=== PATIENT | female | born 1935 | race Caucasian/White ===

== ENCOUNTER → 2016-11-07 | Outpatient (CLI) | payer OTHER ==
[~2016-11-07] MED LIST: ARIMIDEX PO; ASPIR 8181 MG PO; CALCIUM 500+D1 EAC2; CALCIUM 600 +1 EAC1 PO; CARTIA XT240 M1 PO; CELEBREX 200 M200 MG PO; CENTRUM SILVER1 EAC4 PO; DARVOCET-N 1001 EACH PO; EDARBI80 MG PO; GLUCOSAMINE HC500 MG PO; LEVOTHYROXINE 0.1 MG PO; MICARDIS HCT 81 EAC1 PO; MOBIC15 MG PO; MULTIVITAMINS; PRILOSEC OTC20 MG PO; SYNTHROID88 MCG
== END ==
LOC: RAD 11-04 14:55
DX: Z12.31 Encounter for screening mammogram for malignant neoplasm of breast (principal)

== ENCOUNTER → 2017-11-11 | Outpatient (CLI) | payer OTHER | LOC: RAD 05:04 | DX: Z12.31 Encounter for screening mammogram for malignant neoplasm of breast (principal) ==

== ENCOUNTER 2018-09-21 12:08 | Inpatient (IN) | payer OTHER ==
--- NOTE | ~2018-09-21 | D ---
[facility] [place] [address] DISCHARGE SUMMARY Name: Ramiro HUERTAS Room #: 207-P ADM IN M.R.#: [id number] Admission: 09/21/18 ������������������ Attend Phys: Jose Elias Fischer Discharge: ������������������ Date of : 33 Report #: [id number] THIS REPORT FOR: //name// CC: Diana Fischer DATE OF SERVICE: 09/22/2018 ADMITTING DIAGNOSIS: Symptomatic paroxysmal atrial fibrillation. DISCHARGE DIAGNOSES: 1. Symptomatic paroxysmal atrial fibrillation. 2. Degenerative joint disease. PROCEDURES PERFORMED: Implantation of a [employer] loop recorder. DISCHARGE MEDICATIONS: 1. At home meds. 2. Amiodarone 200 mg p.o. b.i.d. for 1 week, q. a.m. for 1 week thereafter. FOLLOWUP: Dr. Fischer in 3 weeks. BRIEF CLINICAL HISTORY: See history and physical in chart. HOSPITAL COURSE: The patient was admitted to the hospital, has initiated IV amiodarone. She did not convert clinically, but was fed breakfast, and therefore, was unable to undergo cardioversion, but proposed loop implantation proceeded as scheduled. She is now being discharged in stable condition to follow up as an outpatient and allow full amiodarone load to occur. If she does not convert after adequate levels, then we will bring her back at that time for electrical cardioversion. Discussed with the patient and family. They both agreed. She is now being discharged in stable and improved condition to follow up with the previously stated discharge instructions and medications. ��������������������������������������������� ���������������������������������������� By: ��������������������������������������������� [phone] Jose Elias Fischer MD /nt
[2018-09-21 12:10] VITALS: BP 124/78; BP 137/92
[2018-09-21] MEDS ORDERED: EDARBI80 MG (12:49)
[2018-09-21] MEDS ORDERED: TOPROL XL25 MG PO (12:50)
[2018-09-21] MEDS ORDERED: NORVASC5 MG PO (12:50)
[2018-09-21] MEDS ORDERED: ELIQUIS5 MG PO (12:51)
[2018-09-21] MEDS ORDERED: TYLENOL EXTRA500 MG PO (12:52)
--- NOTE | 2018-09-21 13:09 | NUR ---
PT IS DIRECT ADMIT FROM DR GEORGE OFFICE. PT ARRIVED TO UNIT AT APPROX 1200 WITH DAUGHTER, PT ALERT AND ORIENTED, VSS, DENIES PAIN, UP AD WILD. ADMISSION COMPLETED, CONSENTS SIGNED. TELE PUT ON- ADMIT STRIP PRINTED AND DOCUMENTED. IV STARTED. WILL AWAIT FURTHER ORDERS. PT DENIES CONCERNS AT THIS TIME. WILL CONTINUE TO MONITOR AND FOLLOW POC.
[2018-09-21 14:38] LABS: CALCIUM 10.1 mg/dL (8.5-10.1); CREATININE 0.8 mg/dL (0.6-1.0); POTASSIUM 4.1 mmol/L (3.5-5.1)
--- NOTE | 2018-09-21 15:36 | NUR ---
VASCULAR ACCESS TEAM CONSULTED FOR PIC PLACEMENT. PT'S LABS,MEDS,HISTORY, ORDER AND CONSENT VERIFIED. DISCUSSED BENEFITS AND RISKS OF PICC WITH PT AND FAMILY, VERBALIZED UNDERSTANDING. PT WAS PREPPED AND DRAPED FOR MAX BARRIER PRECAUTIONS.JARRETT BRACHIAL WAS WIDELY PATENT WITH USG,1% LIDOCAINE GIVEN SQ. 4FR DL PICC TRIMMED TO 38CM INSERTED TO 2CM EXTERNAL. STAT CXR OBTAINED.
--- NOTE | 2018-09-21 16:00 | NUR ---
CXR CONFIRMED PLACEMENT.RELEASED FOR IMMEDIATE USE PER PROTOCOL.
[2018-09-21 16:15] VITALS: BP 135/89
--- NOTE | 2018-09-21 17:09 | NUR ---
PT CONTINUES TO BE ALERT AND ORIENTED, DAUGHTERS INVOLVED IN PT CARE AND AT BEDSIDE. CONTINUES TO DENY PAIN, SOB. O2 SATS WNL ON ROOM AIR. AMIO GTT CONTINUES PER PROTOCOL. PT UP SBA TOLERATING WELL. PT AND DAUGHTERS UPDATED ON POC. DENIES CONCERNS AT THIS TIME. WILL CONT TO MONITOR AND FOLLOW POC.
[2018-09-21 20:00] VITALS: BP 123/62
[2018-09-22] VITALS (8 sets, daily range): BP systolic 114–163; BP diastolic 65–129
--- NOTE | 2018-09-22 04:26 | NUR ---
PATIENTS CARES WERE ASSUMED AT SHIFT CHANGE. PATIENT WAS ASSESSED AND MEDS WERE PASSED. HOURLY ROUNDING WAS DONE. THE BED IS IN A LOW AND LOCKED POSITION. ORDERS FOR HER CARDIO GTTS WERE FOLLOWED
--- NOTE | 2018-09-22 08:06 | EKG ---
[address] [place] [address] ELECTROCARDIOGRAM REPORT Name: Ramiro HUERTAS Room #: 207-P ADM IN M.R.#: [id number] ������������������ Admission: 09/21/18 ������������������ Attend Phys: Jose Elias Fischer Discharge: ������������������ Date of : 33 Report #: [id number] ����������������������������������������������������������������� [id number] THIS REPORT FOR: //name// [facility] Test Date: 2018-09-22 Test Time: 07:14:09 Pat Name: Ramiro HUERTAS Department: Room: 207 P Gender: F Customer Experience Specialist: IFTIKHAR : 1935 Requested By: Lala Barksdale Order Number: [id number] MD: Juan Guidry Measurements Intervals Irene Rate: 87 P: PA: QRS: -26 QRSD: 96 T: 171 QT: 345 QTc: 415 Interpretive Statements Atrial fibrillation Borderline left axis deviation Poor R wave progression Nonspecific ST and T wave abnormality Compared to ECG 10/12/2015 08:21:17 Atrial fibrillation has replaced sinus rhythm Electronically Signed On 09-22-2018 8:06:41 CDT by Juan Guidry [email or web address] ��������������������������������������������� <ELECTRONICALLY SIGNED> ���������������������������������������� By: Juan Guidry MD, [facility] ��������������������������������������������� 09/22/18 0806 0714 3 Juna Guidry MD, [facility] /EPI
--- NOTE | 2018-09-22 09:06 | NUR ---
ASSUMED CARE OF PT APPROX 0715, DAUGHTER AT BEDSIDE, PT REPORTED NPO YET BREAKFAST BROUGHT, PT REPORTED SHE ONLY HAD A FEW BITES BEFORE PRECEPTOR CAUGHT THE FACT A TRAY WAS DELIVERED. PT IS A&0X, MEDS GIVEN WITH A FEW SIPS OF WATER. GENERALIZED PAIN ALL OVER, AND KNEES, WILL ASK PHYSICIAN FOR EXTRA STRENGTH TYLENOL. ENCOURAGED ALL TO USE CALL LIGHT FOR ANY NEEDS.
--- NOTE | 2018-09-22 12:46 | NUR ---
PT RETURNED FROM PROCEDURE, A&0X4, FAMILY AT BEDSIDE, AMIO GTT RUNNING AT ONLY 3ML/HR, ADDED IN REAL TIME DOSE OF VOLUME TO BE INFUSED. WILL CHECK FURTHER ORDERS FOR DIET THIS A.M. DIET OF NPO, DISCOVERED LATER, WAS ENTERED NPO AFTER LUNCH TODAY; HENCE PT RECEIVING HER BFAST THIS A.M. BEFORE HER PROCEDURE.ENCOURAGED ALL TO USE CALL LIGHT FOR ANY NEEDS. AT THIS TIME, VS WNL FOR PT
[2018-09-22] MEDS ORDERED: PACERONE 200 M200 M1 PO (14:40)
--- NOTE | 2018-09-22 16:07 | NUR ---
IN PREPARATION FOR DISCHARGE, IV AND PICC LINE REMOVED W/PRESSURE HELD TO STASIS. PT LEAVING WITH DAUGHTER AND ACCOMPANIED BY TRANSPORT TO [facility]. TELE REMOVED AND STRIP PRINTED, AFIB. ALL BELONGINGS W/PT
--- NOTE | 2018-09-23 14:24 | LINQ ---
[place] [address] [facility] [place] [place] [address] LINQ PROCEDURE REPORT Name: JOHNNYMAUREENRamiro SÁNCHEZ Room #: 207-P [facility] IN ..#: [id number] ������������� Admission: 09/21/18 ������������� Attend Phys: Jose Elias Oconnor Discharge: ��� 09/22/18 ������������� ��� Date of : 33 Date of Service: 09/23/18 1423 �� Report #: [id number] �������� ��������������������������������������������[id number] THIS REPORT FOR: //name// APPROVED REPORT Study performed: 09/22/2018 16:29:17 Patient Status: Out-Patient Room #: Event Personnel: Dr Jose Elias Fischer Exam: LOOP Recorder Insertion Indications: Syncope, paroxysmal atrial fibrillation The patient is a 82 year-old female with a history of paroxysmal atrial fibrillation. Implanted Devices: [id number] Confirm [email or web address] Model [id number]/ Serial #[id number] Procedure The patient underwent informed consent. We discussed the details of the procedure including the risks, which include, but not limited to bleeding, infection, vascular damage, cardiac perforation, and pneumothorax. After informed consent was obtained the patient was brought to the cardiac catheterization prep and hold. The left chest was prepped and draped in usual sterile manner. 1% lidocaine was instilled in the proposed incision site and along the proposed tract. Utilizing a #11 blade a skin incision was performed without difficulty. Utilizing blunt and sharp dissection a tract was developed subcutaneously. The device was then delivered subcutaneously utilizing me in close delivery mechanism without complications. Subcutaneous tissue was then sewn into simple interrupted 6 sutures and the skin was closed with 3-0 Vicryl absorbable in a subcuticular fashion. There was no significant blood loss patient tolerated procedure well and there were no complications Complications The patient tolerated the procedure well and there were no complications associated with the procedure. Findings Estimated Blood Loss: 0 Conclusion 1. Successful implantation of a [employer] confirmed loop recorder [address] [address] Referral.IM PROCEDURE REPORT Name: Ramiro HUERTAS Room #: 207-P [facility] IN .R.#: [id number] ������������� Admission: 09/21/18 ������������� Attend Phys: Jose Elias Oconnor Discharge: ��� 09/22/18 ������������� ��� Date of : 33 Date of Service: 09/23/18 142 �� Report #: [id number] �������� ��������������������������������������������[id number] Recommendations 1. Routine post Insertion protocol ��������������������������������������������� <ELECTRONICALLY SIGNED> ���������������������������������������� By: Jose Elias Fischer MD ��������������������������������������������� 09/23/18 142 22 22 Jose Elias Fischer MD /INF
== END 2018-09-22 16:24 | disposition home or self-care (01) | DRG 262 ==
LOC: 2N 12:08 → ENTRNSPT 09-22 16:10 → 2N 09-22 16:24
PROVIDERS: Nurse Practitioner Gerontology; ADMIT Internal Medicine
PROC: 02HV33Z Insertion of Infusion Device into Superior Vena Cava, Percutaneous Approach (ICD-10-PCS; 2018-09-21)
PROC: B548ZZA Ultrasonography of Superior Vena Cava, Guidance (ICD-10-PCS; 2018-09-21)
PROC: 0JH602Z Insertion of Monitoring Device into Chest Subcutaneous Tissue and Fascia, Open Approach (ICD-10-PCS; principal; 2018-09-22)
DX: I48.0 Paroxysmal atrial fibrillation (principal); I10 Essential (primary) hypertension; M19.90 Unspecified osteoarthritis, unspecified site; Z79.01 Long term (current) use of anticoagulants
CPT/HCPCS: 10081

== ENCOUNTER → 2019-04-26 | Outpatient (CLI) | payer OTHER ==
[~2019-04-26] MED LIST changes: +EDARBI80 MG; +ELIQUIS5 MG PO; +NORVASC5 MG PO; +PACERONE 200 M200 M1 PO; +TOPROL XL25 MG PO; +TYLENOL EXTRA500 MG PO
== END ==
LOC: RAD 10:54
DX: Z12.31 Encounter for screening mammogram for malignant neoplasm of breast (principal)

== ENCOUNTER → 2019-08-16 | Outpatient (CLI) | payer OTHER | LOC: SJCVC 10:03 | DX: I44.4 Left anterior fascicular block (principal); I48.0 Paroxysmal atrial fibrillation; I38 Endocarditis, valve unspecified; I10 Essential (primary) hypertension; E78.5 Hyperlipidemia, unspecified; K21.9 Gastro-esophageal reflux disease without esophagitis; M19.90 Unspecified osteoarthritis, unspecified site; Z82.49 Family history of ischemic heart disease and other diseases of the circulatory system; Z79.899 Other long term (current) drug therapy ==

== ENCOUNTER → 2020-06-07 | Outpatient (CLI) | payer OTHER | LOC: BC 10:27 | PROVIDERS: ATTEND Internal Medicine | DX: Z12.31 Encounter for screening mammogram for malignant neoplasm of breast (principal) ==

== ENCOUNTER → 2020-08-17 | Outpatient (CLI) | payer OTHER | LOC: SJCVCIMAG 13:32 | PROVIDERS: ATTEND Internal Medicine | DX: I08.3 Combined rheumatic disorders of mitral, aortic and tricuspid valves (principal); I31.3 Pericardial effusion (noninflammatory); I11.9 Hypertensive heart disease without heart failure; I48.21 Permanent atrial fibrillation; E78.5 Hyperlipidemia, unspecified; K21.9 Gastro-esophageal reflux disease without esophagitis; E03.9 Hypothyroidism, unspecified; M19.90 Unspecified osteoarthritis, unspecified site; Z90.710 Acquired absence of both cervix and uterus; Z98.890 Other specified postprocedural states; Z79.899 Other long term (current) drug therapy; Z82.49 Family history of ischemic heart disease and other diseases of the circulatory system ==

== ENCOUNTER → 2021-02-27 | Outpatient (CLI) | payer OTHER | LOC: SJCVCIMAG 11:17 | PROVIDERS: ATTEND Internal Medicine | DX: I08.3 Combined rheumatic disorders of mitral, aortic and tricuspid valves (principal); R06.02 Shortness of breath; I48.91 Unspecified atrial fibrillation ==